=== PATIENT | male | born 1975 | race Caucasian/White ===

== ENCOUNTER 2021-06-03 01:17 | Emergency (ER) | payer OTHER ==
[2021-06-03 01:57] VITALS: BP 146/95
[2021-06-03 02:56] VITALS: PULSE 122
--- NOTE | 2021-06-03 03:35 | EDM.PDOC ---
ED HPI GENERAL MEDICAL PROBLEM - General Chief Complaint: Skin Complaint Stated Complaint: SWOLLEN HANDS Time Seen by Provider: 06/03/21 02:05 Source of Information: Reports: Patient History Limitations: Reports: No Limitations - History of Present Illness INITIAL COMMENTS - FREE TEXT/NARRATIVE: Patient presents emergency room today secondary to continued and progressive bilateral hand swelling/edema, pain/discomfort as well as macular rash that started in the hands and has progressed from distal to proximal of his arms. Patient states that he noted hand itching on his left hand starting Tuesday that was followed by hand edema right hand began being involved on Tuesday and swelling did start at that time he was seen in urgent care was given a steroid shot and told to use a topical ointment he has not used any Benadryl nor has Benadryl been recommended. Of significant history patient is noted for a left total knee replacement 2 weeks ago/20 May he is currently on oxycodone aspirin acetaminophen and Celebrex for inflammatory response (patient states that Celebrex was just started after the hand symptoms had already begun). Patient states he was told to come into the ER by urgent care should he have any increasing symptoms of concern color changes in his hands. At home he felt like he had some color changes that was pallor in nature. He also states that pain in his hands is unrelieved by oxycodone acetaminophen Celebrex and aspirin that he is currently using. Patient denies any recent infections no nausea vomiting fevers chills or symptoms otherwise. PMH--anxiety, arthritis, obesity Meds--oxycodone, asa, acetaminophen, celebrex; was previously on fluoxitene for his anxiety but stopped it prior to recent surgery Allergies--gabapentin Denies Tob/drug use history EtOH--rare Patient denies having had COVID infection history, he has received his COVID immunization (Moderna x 2, summer months 2020) Bilateral Hand Pain Score (Numeric/FACES): 8 - Related Data Allergies Allergy/AdvReac Type Severity Reaction Status Date / Time gabapentin Allergy Nausea Verified 06/03/21 02:56 Home Meds: Home Meds Aspirin 1 tab PO BID 06/03/21 [History] Celecoxib 200 mg PO DAILY 06/03/21 [History] oxyCODONE 5 mg PO Q4H 06/03/21 [History] Past Medical History HEENT History: Reports: Sinusitis Cardiovascular History: Reports: Prior Cardiac Arrest, Other (See Below) Other Cardiovascular History: syncope, cardiac arrest in [facility] [place] [facility] Respiratory History: Reports: Pneumonia, Recurrent Gastrointestinal History: Reports: Hiatal Hernia Genitourinary History: Reports: Other (See Below) Other Genitourinary History: pylostenosis Musculoskeletal History: Reports: Arthritis, Back Pain, Chronic Psychiatric History: Reports: Depression - Infectious Disease History Infectious Disease History: Reports: Chicken Pox - Past Surgical History GI Surgical History: Reports: Colonoscopy, Hernia Repair/Other, Other (See Below) Other GI Surgeries/Procedures: pyloric stenosis as a baby Male Surgical History: Reports: Vasectomy Musculoskeletal Surgical History: Reports: Arthroscopic Knee, Knee Replacement Oncologic Surgical History: Reports: Lumpectomy, Other (See Below) Other Oncologic Surgeries/Procedures: lump removed from arm. Social & Family History - Family History Family Medical History: No Pertinent Family History - Tobacco Use Tobacco Use Status *Q: Never Tobacco User - Caffeine Use Caffeine Use: Reports: Coffee, Energy Drinks - Recreational Drug Use Recreational Drug Use: No ED ROS GENERAL - Review of Systems Review Of Systems: Comprehensive ROS is negative, except as noted in HPI. Constitutional: Reports: No Symptoms. Denies: Fever, Chills, Malaise, Weakness, Fatigue, Night Sweats Musculoskeletal: Reports: Hand Pain (Bilateral hand edema/swelling as well as a macular rash that starts in his hands distally and has progressed proximally up his arms to the upper arm area bilaterally), Joint Swelling Skin: Reports: Change in Color, Urticaria, Other (Bilateral hand edema/swelling as well as a macular rash that starts in his hands distally and has progressed proximally up his arms to the upper arm area bilaterally) Neurological: Reports: No Symptoms ED EXAM, SKIN/RASH Exam: See Below Exam Limited By: No Limitations General Appearance: Alert, WD/WN, Moderate Distress (secondary to left knee pain as well as ER visit concern for itch, swollen hands with rash) Eye Exam: Bilateral Eye: EOMI, Normal Inspection Ears: Normal External Exam, Hearing Grossly Normal Nose: Normal Inspection Throat/Mouth: Normal Voice, No Airway Compromise Head: Atraumatic, Normocephalic Neck: Normal Inspection, Supple, Non-Tender, Full Range of Motion Respiratory/Chest: No Respiratory Distress, Lungs Clear, Normal Breath Sounds, Chest Non-Tender Cardiovascular: Normal Peripheral Pulses, Regular Rate, Rhythm, No Murmur Peripheral Pulses: 2+: Radial (L), Radial (R) GI/Abdominal: Normal Bowel Sounds, Soft (Male) Exam: Deferred Rectal (Males) Exam: Deferred Extremities: Other (Bilateral hand edema/swelling as well as a macular rash that starts in his hands distally and has progressed proximally up his arms to the upper arm area bilaterally) Neurological: Alert, Oriented, Normal Cognition, No Motor/Sensory Deficits Psychiatric: Normal Affect, Normal Mood Skin: Warm, Dry, Intact, Erythema, Rash, Other (Bilateral hand edema/swelling as well as a macular rash that starts in his hands distally and has progressed proximally up his arms to the upper arm area bilaterally) Course - Vital Signs Text/Narrative:: 0320--labs have been reviewed, noted for elevated white blood cell count 22.9 although patient has received recent steroids would not be expected that this would be elevated to this degree he also has a neutrophil elevation of 77.8% platelet count is elevated at 501 sodium is decreased at 134 and BUN increased to 23 mild with an anion gap of 15.1 these are indicative of some mild dehydration CRP is elevated at 2.73 although this is nonspecific in nature it could be related to inflammatory response related to his recent left total knee replacement versus bilateral inflammation/edema of hands with noted erythema & macular rash/at this time idiopathic in nature. Patient with no fever/chills, temperature elevation, no CP/discomfort, pain/edema is limited to hands and there is no rash on trunk but has started on hands and progressed distal to proximal, no h/o streptococcal infection in the last 2-4 weeks or symptoms of possibility reported thus unlikely to be a post-streptococcal arthritis. Due to recent L-TKA recommend beginning antibiotics and follow up in then next 1-2 days with Orthopedics/PCM for further evaluation and care Laboratory Tests 06/03/21 06/03/21 02:45 02:45 WBC 22.9 H Plt Count 501 H Neut % (Auto) 77.8 H Lymph % (Auto) 12.1 L Terry % (Auto) 7.9 H Eos % (Auto) 1.9 L Sodium 134 L Anion Gap 15.1 H BUN 23 H D Glucose 118 H C-Reactive Protein 2.73 H Globulin 3.8 H Albumin/Globulin Ratio 1.0 L Last Recorded V/S: Last Vital Signs Temp 97.2 F 06/03/21 02:54 Pulse 122 H 06/03/21 02:54 Resp 20 06/03/21 02:54 BP 146/95 H 06/03/21 02:54 Pulse Ox 95 06/03/21 02:54 - Orders/Labs/Meds Labs: Laboratory Tests 06/03/21 06/03/21 Range/Units 02:45 02:45 WBC 22.9 H (4.5-11.0) K/uL RBC 4.99 (4.30-5.90) M/uL Hgb 14.6 (12.0-15.0) g/dL Hct 42.6 (40.0-54.0) % MCV 85 (80-98) fL MCH 29 (27-31) pg MCHC 34 (32-36) % Plt Count 501 H (150-400) K/uL Neut % (Auto) 77.8 H (36-66) % Lymph % (Auto) 12.1 L (24-44) % Terry % (Auto) 7.9 H (2-6) % Eos % (Auto) 1.9 L (2-4) % Baso % (Auto) 0.3 (0-1) % Sodium 134 L (140-148) mmol/L Potassium 4.1 (3.6-5.2) mmol/L Chloride 100 (100-108) mmol/L Carbon Dioxide 23 (21-32) mmol/L Anion Gap 15.1 H (5.0-14.0) mmol/L BUN 23 H D (7-18) mg/dL Creatinine 0.9 (0.8-1.3) mg/dL Est Cr Clr Drug Dosing 119.24 mL/min Estimated GFR (MDRD) > 60 (>60) Glucose 118 H (74-106) mg/dL Calcium 8.8 (8.5-10.1) mg/dL Total Bilirubin 0.6 D (0.2-1.0) mg/dL AST 22 (15-37) U/L ALT 37 (12-78) U/L Alkaline Phosphatase 51 (46-116) U/L C-Reactive Protein 2.73 H (0.0-0.3) mg/dL Total Protein 7.5 (6.4-8.2) g/dL Albumin 3.7 (3.4-5.0) g/dL Globulin 3.8 H (2.3-3.5) g/dL Albumin/Globulin Ratio 1.0 L (1.2-2.2) Departure - Departure Time of Disposition: 03:42 Disposition: Home, Self-Care 01 Clinical Impression: Bilateral hand swelling, Urticaria, Localized macular rash - Discharge Information *PRESCRIPTION DRUG MONITORING PROGRAM REVIEWED*: Not Applicable *COPY OF PRESCRIPTION DRUG MONITORING REPORT IN PATIENT CHANDANA: Not Applicable Instructions: Rash, Adult, [id number] Referrals: Aminta Flynn DO [Primary Care Provider] - Additional Instructions: As discussed secondary to your recent total knee replacement and recent evolution of symptoms of your bilateral hand swelling/edema as well as rash I have recommended that you start oral antibiotics. You received a dose of steroids in the last 24 hours through urgent care. It is recommended that you follow-up with your primary care provider and/or orthopedics in the next 1 to 2 days for reevaluation and continued management of the symptoms Sepsis Event Note (ED) - Evaluation Sepsis Screening Result: No Definite Risk - Focused Exam Vital Signs: Vital Signs Temp Pulse Resp BP Pulse Ox 06/03/21 02:54 97.2 F 122 H 20 146/95 H 95 06/03/21 01:56 97.2 F 132 H 20 146/95 H 95
== END 2021-06-03 04:11 | disposition home or self-care (01) ==
LOC: JP.ED 01:17
DX: M79.89 Other specified soft tissue disorders (principal); L50.9 Urticaria, unspecified; M19.90 Unspecified osteoarthritis, unspecified site; Z88.6 Allergy status to analgesic agent; Z79.82 Long term (current) use of aspirin; Z79.899 Other long term (current) drug therapy
CPT/HCPCS: 36415; 80053; 85025; 86140; 99283